=== PATIENT | male | born 1990 | race African-American/Black ===

== ENCOUNTER 2018-02-20 11:00 | Emergency (ER) | payer OTHER ==
[~2018-02-20] VITALS: Ht 165.1 cm; Wt 56.7 kg
[~2018-02-20 11:00] MED LIST: AMOXICILLIN 50500 M1 PO; NOHOMEMEDICATIONS
[2018-02-20 12:30] VITALS: BP 132/79
[2018-02-20] MEDS ORDERED: IBUPROFEN 600600 M1 PO (12:36)
== END 2018-02-20 12:30 | disposition home or self-care (01) ==
LOC: ER 11:00
DX: S60.021A Contusion of right index finger without damage to nail, initial encounter (principal); W22.8XXA Striking against or struck by other objects, initial encounter; Y92.89 Other specified places as the place of occurrence of the external cause; Y93.89 Activity, other specified; Y99.8 Other external cause status

== ENCOUNTER 2019-08-23 07:39 | Emergency (ER) | payer OTHER ==
[~2019-08-23] VITALS: Ht 162.6 cm; Wt 54.4 kg
[~2019-08-23 07:39] MED LIST changes: +IBUPROFEN 600600 M1 PO
[2019-08-23 09:27] VITALS: BP 105/69
== END 2019-08-23 09:27 | disposition home or self-care (01) ==
LOC: ER 07:39
DX: J02.9 Acute pharyngitis, unspecified (principal); F12.90 Cannabis use, unspecified, uncomplicated; R19.7 Diarrhea, unspecified

== ENCOUNTER 2021-07-12 11:01 | Emergency (ER) | payer OTHER ==
[~2021-07-12] VITALS: Ht 165.1 cm; Wt 56.7 kg
[2021-07-12 11:09] VITALS: BP 126/79
== END 2021-07-12 11:54 | disposition home or self-care (01) ==
LOC: ER 11:01
DX: S61.012A Laceration without foreign body of left thumb without damage to nail, initial encounter (principal); Z89.021 Acquired absence of right finger(s); W45.8XXA Other foreign body or object entering through skin, initial encounter; Y93.89 Activity, other specified; Y92.89 Other specified places as the place of occurrence of the external cause; Y99.8 Other external cause status